=== PATIENT | female | born 1955 | race Caucasian/White ===

== ENCOUNTER 2024-07-29 05:59 | Inpatient (IN) | payer MEDICARE ==
[2024-07-26 09:54] LABS: Urine Bacteria None Seen /hpf (None Seen)
[2024-07-26 10:00] LABS: Basophils # (auto) 0.1 10 ^3/uL (0-0.2); Basophils % (auto) 0.9 % (0.0-2.0); Eosinophils # (auto) 0 10 ^3/uL (0-0.8); Eosinophils % (auto) 0.5 % (0.0-7.0); Hematocrit 40.9 % (36.0-46.0); Hemoglobin 13.8 g/dL (12.2-16.2); Lymphocytes # (auto) 1.7 10 ^3/uL (0.4-5.4); Lymphocytes % (auto) 19.7 % (10.0-50.0); Mean Corpuscular Hemoglobin 30.1 pg (28.0-32.0); Mean Corpuscular Hgb Conc. 33.9 g/dL (32.0-36.0); Mean Corpuscular Volume 88.8 fL (80.0-100.0); Monocytes # (auto) 1.1 10 ^3/uL (0-1.3); Monocytes % (auto) 13.1 % (0.0-12.0); Neutrophils # (auto) 5.7 10 ^3/uL (1.6-8.6); Neutrophils % (auto) 65.8 % (37.0-80.0); Platelet Count (auto) 405 10^3/uL (140-450); Red Cell Distribution Width 13.8 % (11.8-14.3); White Blood Cell 8.6 10^3/uL (4.4-10.8)
[2024-07-26 10:22] LABS: Alanine Aminotransferase 15 U/L (7-40); Albumin 4.7 g/dL (3.2-4.8); Alkaline Phosphatase 105 U/L (46-116); Anion Gap 9 (5-15); Aspartate Aminotransferase 12 U/L (13-40); BUN/Creatinine Ratio 18.3 (10.0-20.0); Blood Urea Nitrogen 13 mg/dL (9-23); Calcium 9.8 mg/dL (8.7-10.4); Carbon Dioxide 27 mmol/L (20-31); Chloride 105 mmol/L (98-107); Glucose 93 mg/dL (74-106); Potassium 3.9 mmol/L (3.5-5.1); Sodium 141 mmol/L (136-145)
[2024-07-26 10:23] LABS: Bilirubin, Total 0.4 mg/dL (0.2-1.0); Total Protein 7.3 g/dL (5.7-8.2)
[2024-07-26 10:37] LABS: INR 1.05 (0.9-1.15); Partial Thromboplastin Time 27.1 SEC (24.5-34.5); Prothrombin Time 11.1 sec (9.3-11.8)
[2024-07-26 11:49] LABS: Urine Blood 2+ /uL (Negative); Urine Clarity Clear (Clear); Urine Color Yellow (Yellow); Urine Mucus FEW (None Seen); Urine Protein, UAD Negative (Negative); Urine Specific Gravity 1.017 (1.001-1.035); Urine Urobilinogen Normal (Negative); Urine WBC 2 /hpf (0 - 5); Urine pH 5.5 (5.0-9.0)
[~2024-07-29] VITALS: Ht 157.5 cm; Wt 68.6 kg
[~2024-07-29 05:59] MED LIST: BACL10TA PO; CHOL20007 PO; PERCOT PO
[2024-07-29] MEDS: PREGABALIN CAPSULE 75 MG CAP PO ONE (07:30)
[2024-07-29] MEDS: ACETAMINOPHEN IV 1000 MG/100ML (10MG/ML) IV ONE (07:30)
[2024-07-29] MEDS: CELECOXIB 100 MG CAP PO ONE (07:30)
[2024-07-29] MEDS: CEFEPIME 1GM/ 50ML 50 ML IV ONE ×2 (08:00→09:05)
[2024-07-29] MEDS: TRANEXAMIC ACID 20 ML ONE (08:09)
[2024-07-29] MEDS: VANCOMYCIN HCL 1000 MG VL ONE (08:11)
[2024-07-29] MEDS ORDERED: PROPOFOL 10 MG/ML 20 ML IV ONE (08:22)
[2024-07-29] MEDS ORDERED: MEPERIDINE HCL (25 MG/ML) 1ML VIAL ONE (08:22)
[2024-07-29] MEDS ORDERED: fentaNYL CITRATE 100 MCG/2 ML VL ONE ×3 (08:22→09:51)
[2024-07-29] MEDS: CELECOXIB 100 MG CAP ONE (08:44)
[2024-07-29] MEDS: ROPIVACAINE 0.5% (5MG/ML) 20ML AMPULE IJ ONE (08:45)
[2024-07-29] MEDS: ACETAMINOPHEN IV 100 ML IV ONE (08:45)
[2024-07-29] MEDS: ceFAZolin 2 GM/D5W100ml 100 ML IV ONE (08:45)
[2024-07-29] MEDS: PREGABALIN CAPSULE 75 MG CAP ONE (08:45)
[2024-07-29] MEDS: KETOROLAC TROMETH 30 MG/ML 1ML VIAL ONE (09:00)
[2024-07-29] MEDS: MORPHINE SULF PF 5 MG/10 ML VIAL ONE (09:00)
[2024-07-29] MEDS: BUPIVACAINE W/ EPINEPH 0.5% INJ 50ML MDV IJ ONE (09:00)
[2024-07-29] MEDS ORDERED: HYDROmorphone HCL 2 MG/ML VL/or syr IV PRN (09:15)
[2024-07-29] MEDS ORDERED: ceFAZolin 1GM/50ML 50 ML IV SCH (09:15)
[2024-07-29] MEDS ORDERED: NITROGLYCERIN 0.4 MG SL TAB SL PRN (09:15)
[2024-07-29] MEDS ORDERED: MORPHINE SULFATE INJ 2 MG/ml SYRG IV PRN (09:15)
[2024-07-29] MEDS ORDERED: ONDANSETRON HCL 4 MG/2 ML VIAL IV PRN (09:15)
--- NOTE | 2024-07-29 09:31 | DVH ---
XY R HIP COMPLETE XRAY HISTORY: SURGERY TECHNICAL DATA: Frontal view was obtained of the pelvis and right hip. COMPARISON: None FINDINGS: Right hip arthroplasty appears intact and in good alignment. Surgical screw hardware is seen to proje ct over the right pelvis and sacrum. No right hip fracture is identified. There is no abnormality in volving the bony pelvis. The sacroiliac joints appear normal. The pubic symphysis appears normal. The contralateral hip demonstrates no abnormality on the single frontal view. The proximal femurs demons trate no abnormality. IMPRESSION: Right hip arthroplasty appears intact and in good alignment.
[2024-07-29] MEDS ORDERED: DexAMETHasone SOD PHOS 10MG/1ML VIAL INJ ONE (09:34)
[2024-07-29] MEDS ORDERED: ONDANSETRON HCL 4 MG/2 ML VIAL ONE (09:34)
[2024-07-29 09:35] VITALS: PULSE 102; RESP 16
[2024-07-29] MEDS ORDERED: ePHEDrine SULFATE 50 MG/ML AMP ONE (09:43)
[2024-07-29] MEDS: LACTATED RINGER'S 1,000 ML IV SCH (09:45)
[2024-07-29] MEDS: CEFEPIME 1GM/ 50ML 50 ML IV SCH (10:00)
[2024-07-29] MEDS: ONDANSETRON HCL 4 MG/2 ML VIAL IV ONE (10:15)
[2024-07-29] MEDS ORDERED: MEPERIDINE HCL (25 MG/ML) 1ML VIAL IV PRN (10:15)
[2024-07-29] MEDS: HYDROmorphone HCL 2 MG/ML VL/or syr IV PRN (11:12)
[2024-07-29] MEDS: SODIUM CHLOR 0.9% PF (SALINE LOCK) 10ML VIAL/SYR IV SCH (14:00)
--- NOTE | 2024-07-29 14:10 | DVHHP2 ---
Review of Systems Allergies: Coded Allergies: Glatiramer (Verified Adverse Reaction, Severe, Lymph node swelling/removal, 07/26/24) Mannitol (Verified Adverse Reaction, Severe, Lymph node swelling/removal, 07/26/24) Medications Current Medications Medications Dose Ordered Sig/Andre Route Start Time Stop Time Status Last Admin Dose Admin Lactated Ringer's 1,000 ml @ 100 mls/hr Q10H IV 07/29/24 09:15 Sodium Chloride 10 ml Q8HR IV 07/29/24 14:00 Cefazolin Sodium 50 ml @ 50 mls/hr Q6H IV 07/29/24 09:15 07/29/24 22:14 Oxycodone/ Acetaminophen 1 tab Q4HP PRN PO 07/29/24 09:15 Ondansetron HCl 4 mg Q6HP PRN IV 07/29/24 09:15 Docusate Sodium 100 mg Q12HR PO 07/29/24 10:00 Enoxaparin Sodium 40 mg DAILY SC 07/29/24 10:00 Nitroglycerin 0.4 mg Q5MINP PRN SL 07/29/24 09:15 Morphine Sulfate 2 mg Q30M PRN IV 07/29/24 09:15 Cefepime HCl 50 ml @ 12.5 mls/hr DAILY IV 07/29/24 10:00 07/30/24 13:59 Exam Vital Signs Vital Signs Date Time Temp Pulse Resp B/P (MAP) Pulse Ox O2 Delivery O2 Flow Rate FiO2 07/29/24 13:20 82 16 117/67 (84) 96 07/29/24 09:43 Nasal Cannula 2.0 07/29/24 09:35 97.6 97.6 Labs/Xrays Labs Test 07/26/24 09:50 Range/Units White Blood Count 8.6 4.4-10.8 10^3/uL Red Blood Count 4.60 4.0-5.20 10^6/uL Hemoglobin 13.8 12.2-16.2 g/dL Hematocrit 40.9 36.0-46.0 % Mean Corpuscular Volume 88.8 80.0-100.0 fL Mean Corpuscular Hemoglobin 30.1 28.0-32.0 pg Mean Corpuscular Hemoglobin Concent 33.9 32.0-36.0 g/dL Red Cell Distribution Width 13.8 11.8-14.3 % Platelet Count 405 140-450 10^3/uL Mean Platelet Volume 7.2 6.9-10.8 fL Neutrophils (%) (Auto) 65.8 37.0-80.0 % Lymphocytes (%) (Auto) 19.7 10.0-50.0 % Monocytes (%) (Auto) 13.1 H 0.0-12.0 % Eosinophils (%) (Auto) 0.5 0.0-7.0 % Basophils (%) (Auto) 0.9 0.0-2.0 % Neutrophils # (Auto) 5.7 1.6-8.6 10 ^3/uL Lymphocytes # (Auto) 1.7 0.4-5.4 10 ^3/uL Monocytes # (Auto) 1.1 0-1.3 10 ^3/uL Eosinophils # (Auto) 0 0-0.8 10 ^3/uL Basophils # (Auto) 0.1 0-0.2 10 ^3/uL Nucleated Red Blood Cells 0.0 % Prothrombin Time 11.1 9.3-11.8 sec Prothrombin Time INR 1.05 0.9-1.15 Activated Partial Thromboplast Time 27.1 24.5-34.5 SEC Urine Color Yellow Yellow Urine Clarity Clear Clear Urine pH 5.5 5.0-9.0 Urine Specific [place] 1.017 1.001-1.035 Urine Protein Negative Negative Urine Ketones Negative Negative Urine Blood 2+ H Negative /uL Urine Nitrite Negative Negative Urine Bilirubin Negative Negative Urine Urobilinogen Normal Negative mg/dL Urine Leukocyte Esterase Negative Negative /uL Urine RBC 9 0 - 4 /hpf Urine WBC 2 0 - 5 /hpf Urine Squamous Epithelial Cells Few <5 /hpf Urine Bacteria None seen None Seen /hpf Urine Mucus Few None Seen Urine Glucose Normal Normal mg/dL Sodium Level 141 136-145 mmol/L Potassium Level 3.9 3.5-5.1 mmol/L Chloride Level 105 98-107 mmol/L Carbon Dioxide Level 27 20-31 mmol/L Anion Gap 9 5-15 Blood Urea Nitrogen 13 9-23 mg/dL Creatinine 0.71 0.550-1.02 mg/dL Glomerular Filtration Rate Calc 93 >90 mL/min BUN/Creatinine Ratio 18.3 10.0-20.0 Serum Glucose 93 74-106 mg/dL Calcium Level 9.8 8.7-10.4 mg/dL Total Bilirubin 0.4 0.2-1.0 mg/dL Aspartate Amino Transferase (AST) 12 L 13-40 U/L Alanine Aminotransferase (ALT) 15 7-40 U/L Alkaline Phosphatase 105 46-116 U/L Total Protein 7.3 5.7-8.2 g/dL Albumin 4.7 3.2-4.8 g/dL Assessment/Plan Assessment/Plan see dictated note Plan discussed with: Patient My Orders Orders - CHANI MURRIETA MD Procedure Category Date Status Time Hydromorphone PHA 07/29/24 Transmitted Injection (Dilaudid 14:15 Complete Blood Count LAB 07/30/24 Verified 06:00 Comprehensive LAB 07/30/24 Verified Metabolic Panel 06:00 Date of Service: Jul 29, 2024 Billing Provider: CHANI MURRIETA MD Common Visit Codes: [id number] INP/OBS CARE (HIGH) CHANI MURRIETA MD Jul 29, 2024 14:10
[2024-07-29 14:15] VITALS: BP 138/75; PULSE 93; RESP 16; TEMP 97.9; O2SAT 92
--- NOTE | 2024-07-29 14:51 | DVHHP ---
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 The patient at this time denies any significant pain. No chest pain or shortness of breath. No nausea or vomiting. REVIEW OF SYSTEMS: Review of rest of systems is otherwise currently negative. PAST MEDICAL HISTORY: Significant for chronic pain along with history of multiple sclerosis. MEDICATIONS: She takes Percocet and baclofen. ALLERGIES: . SOCIAL HISTORY: Denies smoking. Lives at home with her . FAMILY HISTORY: Negative. PHYSICAL EXAMINATION: GENERAL: The patient is awake, alert. VITAL SIGNS: Temperature of 97.6, pulse of 80 per minute, blood pressure 158/65. SHEENT: Unremarkable. NECK: There is no JVD. No pedal edema. LUNGS: Equal bilaterally. No added sounds. CARDIOVASCULAR: S1, S2 is regular. No murmurs. ABDOMEN: Soft. There is no organomegaly. NEUROLOGIC: Nonfocal. MUSCULOSKELETAL: The right hip has a dressing in place. ASSESSMENT AND PLAN: * Multiple sclerosis. * Chronic pain for which the patient will continue on baclofen and Percocet. * Status post right hip surgery for degenerative joint disease of the hip for which she will be receiving pain medication and physical therapy. MD JUANITA Jones/MARIA TERESA/JONATHON TID: [id number] RECEIPT: [id number]
[2024-07-29 16:15] VITALS: BP 138/75; PULSE 93; RESP 16; TEMP 97.9; O2SAT 92
[2024-07-29] MEDS: ENOXAPARIN SOD 40 MG/0.4 ML SYRINGE SC SCH (16:15)
[2024-07-29] MEDS: DOCUSATE SOD 100 MG CAP PO SCH (16:15)
--- NOTE | 2024-07-29 17:48 | DVH ---
EXAM: XY PELVIS AP CLINICAL HISTORY: sp Right SABRINA COMPARISON: None TECHNIQUE: XY PELVIS AP Findings/Impression: Single frontal view of the pelvis. There is no evidence of an acute fracture, dislocation, blastic, or lytic lesions. Right total hip arthroplasty. No superficial soft tissue abnormalities.
[2024-07-29] MEDS: ceFAZolin 1GM/50ML 50 ML IV SCH (19:07)
[2024-07-29 20:00] VITALS: PULSE 93; RESP 18; O2SAT 95
[2024-07-29] MEDS ORDERED: PNEUMOCOCCAL VACC POLYS 25 MCG/0.5 ML VIAL IM ONE (20:15)
[2024-07-29] MEDS: INFLUENZA TRIVALENT 2024-2025 0.5 ML INJ IM ONE (20:56)
[2024-07-29 21:00] VITALS: BP 154/74; PULSE 93; RESP 18; TEMP 97.9; O2SAT 95
[2024-07-29] MEDS: BACLOFEN 10 MG TAB PO PRN (23:13)
[2024-07-30] VITALS (8 sets, daily range): BP systolic 126–158; BP diastolic 57–73; PULSE 79–103; RESP 16–19; TEMP 98–100.2; O2SAT 90–94
[2024-07-30] MEDS: OXYCODONE W/ ACETAMINOPHEN 5/325MG TABLET PO PRN (00:25)
[2024-07-30] MEDS: ceFAZolin 1GM/50ML 50 ML IV SCH (00:26)
[2024-07-30] MEDS: HYDROmorphone HCL 2 MG/ML VL/or syr IV PRN (03:18)
[2024-07-30 06:25] LABS: Basophils # (auto) 0 10 ^3/uL (0-0.2); Basophils % (auto) 0.2 % (0.0-2.0); Eosinophils # (auto) 0 10 ^3/uL (0-0.8); Eosinophils % (auto) 0.2 % (0.0-7.0); Hematocrit 34.9 % (36.0-46.0); Hemoglobin 11.8 g/dL (12.2-16.2); Mean Corpuscular Hemoglobin 29.8 pg (28.0-32.0); Mean Corpuscular Hgb Conc. 33.8 g/dL (32.0-36.0); Mean Corpuscular Volume 88.4 fL (80.0-100.0); Monocytes # (auto) 1.5 10 ^3/uL (0-1.3); Monocytes % (auto) 14.1 % (0.0-12.0); Neutrophils # (auto) 7.3 10 ^3/uL (1.6-8.6); Neutrophils % (auto) 67.5 % (37.0-80.0); Nucleated Red Blood Cells % 0.1 %; Platelet Count (auto) 355 10^3/uL (140-450); Red Blood Cells 3.94 10^6/uL (4.0-5.20); Red Cell Distribution Width 13.9 % (11.8-14.3); White Blood Cell 10.8 10^3/uL (4.4-10.8)
[2024-07-30 06:46] LABS: Alanine Aminotransferase 13 U/L (7-40); Alkaline Phosphatase 80 U/L (46-116); Anion Gap 7 (5-15); Aspartate Aminotransferase 21 U/L (13-40); BUN/Creatinine Ratio 16.1 (10.0-20.0); Bilirubin, Total 0.5 mg/dL (0.2-1.0); Blood Urea Nitrogen 10 mg/dL (9-23); Calcium 8.6 mg/dL (8.7-10.4); Carbon Dioxide 27 mmol/L (20-31); Chloride 104 mmol/L (98-107); Glucose 94 mg/dL (74-106); Potassium 3.5 mmol/L (3.5-5.1); Sodium 138 mmol/L (136-145); Total Protein 5.9 g/dL (5.7-8.2)
--- NOTE | 2024-07-30 07:44 | DVHPN2 ---
Progress Note Date Seen: Jul 30, 2024 Medical Necessity Reason Pt with a Central, PICC or Fol: No Subjective Patient reports: No new complaints Objective vital signs Vital Sign Date Time Temp Pulse Resp B/P (MAP) Pulse Ox O2 Delivery O2 Flow Rate FiO2 07/30/24 05:00 98.0 79 17 126/68 (87) 90 98.0 07/29/24 20:00 Room Air* 0 21 Total Intake and Output 07/29/24 07/29/24 07/30/24 15:00 23:00 07:00 Intake Total 100 ml 1000 ml Output Total 150 ml Balance 100 ml 850 ml medications Current Medications Medications Dose Ordered Sig/Andre Route Start Time Stop Time Status Last Admin Dose Admin Lactated Ringer's 1,000 ml @ 100 mls/hr Q10H IV 07/29/24 09:15 07/30/24 06:17 100 MLS/HR Sodium Chloride 10 ml Q8HR IV 07/29/24 14:00 07/30/24 06:23 10 ML Oxycodone/ Acetaminophen 1 tab Q4HP PRN PO 07/29/24 09:15 07/30/24 00:25 1 TAB Ondansetron HCl 4 mg Q6HP PRN IV 07/29/24 09:15 Docusate Sodium 100 mg Q12HR PO 07/29/24 10:00 07/29/24 20:42 100 MG Enoxaparin Sodium 40 mg DAILY SC 07/29/24 10:00 Nitroglycerin 0.4 mg Q5MINP PRN SL 07/29/24 09:15 Morphine Sulfate 2 mg Q30M PRN IV 07/29/24 09:15 Cefepime HCl 50 ml @ 12.5 mls/hr DAILY IV 07/29/24 10:00 07/30/24 13:59 Hydromorphone HCl 1 mg Q3HP PRN IV 07/29/24 14:15 07/30/24 03:18 1 MG Baclofen 10 mg Q8HP PRN PO 07/29/24 14:15 07/29/24 23:13 10 MG Cefazolin Sodium 50 ml @ 50 mls/hr Q6H IV 07/30/24 01:00 07/30/24 07:59 07/30/24 06:19 50 MLS/HR Examination: GENERAL:Normal, MSK:Abnormal laboratory and microbiology Laboratory Tests 07/30/24 04:41 Test 07/30/24 04:41 Range/Units Serum Glucose 94 74-106 mg/dL Problem List/Assessment/Plan Problem List/Assessment/Plan 68 year old female who is s/p Right SABRINA POD 1 1. Pain control 2. DVT ppx 3. WBAT with use of walker and posterior hip precautions 4. Physical therapy with posterior hip protocol 5. continue with island dressing, can change as needed Plan discussed with: Patient Date of Service: Jul 30, 2024 Billing Provider: ARCELIA BOUCHER MD Common Visit Codes: NOT BILLABLE ALON COLUNGA NP Jul 30, 2024 07:44
[2024-07-30] MEDS ORDERED: LACTATED RINGER'S 1,000 ML IV SCH (10:00)
--- NOTE | 2024-07-30 10:04 | DVHPN2 ---
Progress Note Date Seen: Jul 30, 2024 Medical Necessity Reason Pt with a Central, PICC or Fol: No Subjective Patient reports: No new complaints Review of Systems: HEENT:Normal, CVS:Normal, RESPIRATORY:Normal, GI:Normal, :Normal, MSK:Normal, NEURO:Normal Objective vital signs Vital Sign Date Time Temp Pulse Resp B/P (MAP) Pulse Ox O2 Delivery O2 Flow Rate FiO2 07/30/24 09:00 98.0 89 16 144/57 (86) 91 98.0 07/29/24 20:00 Room Air* 0 21 Total Intake and Output 07/29/24 07/29/24 07/30/24 15:00 23:00 07:00 Intake Total 100 ml 1000 ml Output Total 150 ml Balance 100 ml 850 ml medications Current Medications Medications Dose Ordered Sig/Andre Route Start Time Stop Time Status Last Admin Dose Admin Lactated Ringer's 1,000 ml @ 100 mls/hr Q10H IV 07/29/24 09:15 07/30/24 06:17 100 MLS/HR Sodium Chloride 10 ml Q8HR IV 07/29/24 14:00 07/30/24 06:23 10 ML Oxycodone/ Acetaminophen 1 tab Q4HP PRN PO 07/29/24 09:15 07/30/24 00:25 1 TAB Ondansetron HCl 4 mg Q6HP PRN IV 07/29/24 09:15 Docusate Sodium 100 mg Q12HR PO 07/29/24 10:00 07/29/24 20:42 100 MG Enoxaparin Sodium 40 mg DAILY SC 07/29/24 10:00 Nitroglycerin 0.4 mg Q5MINP PRN SL 07/29/24 09:15 Morphine Sulfate 2 mg Q30M PRN IV 07/29/24 09:15 Cefepime HCl 50 ml @ 12.5 mls/hr DAILY IV 07/29/24 10:00 07/30/24 13:59 Hydromorphone HCl 1 mg Q3HP PRN IV 07/29/24 14:15 07/30/24 03:18 1 MG Baclofen 10 mg Q8HP PRN PO 07/29/24 14:15 07/29/24 23:13 10 MG Examination: GENERAL:Normal, HEENT:Normal, NECK:Normal, LUNGS:Normal, CVS:Normal, ABDOMEN:Normal, MSK:Abnormal (RIGHT HIP DRESSING), SKIN:Normal, NEURO:Normal, :Normal laboratory and microbiology Laboratory Tests 07/30/24 04:41 Test 07/30/24 04:41 Range/Units Serum Glucose 94 74-106 mg/dL Problem List/Assessment/Plan Problem List/Assessment/Plan * Multiple sclerosis. * Chronic pain for which the patient will continue on baclofen and Percocet. * Status post right hip surgery for degenerative joint disease of the hip for which she will be receiving pain medication and physical therapy. advance care planning- full code- time spent 19 mins Plan discussed with: Patient My Orders My Orders Orders - CHANI MURRIETA MD Procedure Category Date Status Time Hydromorphone PHA 07/29/24 In Process Injection (Dilaudid 14:15 Baclofen Tablet PHA 07/29/24 In Process (Liorisal Tablet) 14:15 Hepatitis B Surface LAB 07/29/24 In Process Antigen 20:06 Hepatitis C Antibody LAB 07/29/24 In Process 20:06 Lactated Ringers 1000 PHA 07/30/24 Verified mL 10:00 Date of Service: Jul 30, 2024 Billing Provider: CHANI MURRIETA MD Common Visit Codes: [id number] INP/OBS CARE(HIGH) Secondary Visit Codes: [id number] CARE PLAN 30 MINUTES CHANI MURRIETA MD Jul 30, 2024 10:04
[2024-07-31 01:00] VITALS: BP 141/75; PULSE 97; RESP 17; TEMP 99.3; O2SAT 94
[2024-07-31 05:00] VITALS: BP 138/78; PULSE 82; RESP 18; TEMP 98.1; O2SAT 92
[2024-07-31 07:18] LABS: Hematocrit 40.9 % (36.0-46.0)
--- NOTE | 2024-07-31 08:01 | DVHPN2 ---
Progress Note Date Seen: Jul 31, 2024 Medical Necessity Reason Pt with a Central, PICC or Fol: No Objective vital signs Vital Sign Date Time Temp Pulse Resp B/P (MAP) Pulse Ox O2 Delivery O2 Flow Rate FiO2 07/31/24 05:00 98.1 82 18 138/78 (98) 92 98.1 07/30/24 20:00 Room Air* 0 21 Total Intake and Output 07/30/24 07/30/24 07/31/24 15:00 23:00 07:00 Intake Total 675 ml 450 ml Output Total 400 ml Balance 675 ml 50 ml medications Current Medications Medications Dose Ordered Sig/Andre Route Start Time Stop Time Status Last Admin Dose Admin Sodium Chloride 10 ml Q8HR IV 07/29/24 14:00 07/31/24 05:00 10 ML Oxycodone/ Acetaminophen 1 tab Q4HP PRN PO 07/29/24 09:15 07/31/24 04:56 1 TAB Ondansetron HCl 4 mg Q6HP PRN IV 07/29/24 09:15 Docusate Sodium 100 mg Q12HR PO 07/29/24 10:00 07/30/24 10:53 100 MG Enoxaparin Sodium 40 mg DAILY SC 07/29/24 10:00 07/30/24 10:53 40 MG Nitroglycerin 0.4 mg Q5MINP PRN SL 07/29/24 09:15 Morphine Sulfate 2 mg Q30M PRN IV 07/29/24 09:15 Hydromorphone HCl 1 mg Q3HP PRN IV 07/29/24 14:15 07/31/24 02:02 1 MG Baclofen 10 mg Q8HP PRN PO 07/29/24 14:15 07/29/24 23:13 10 MG laboratory and microbiology Laboratory Tests 07/31/24 07:06 07/30/24 04:41 Test 07/30/24 04:41 Range/Units Serum Glucose 94 74-106 mg/dL Problem List/Assessment/Plan Problem List/Assessment/Plan 68 year old female who is s/p Right SABRINA POD 2 1. Pain control 2. DVT ppx 3. WBAT with use of walker and posterior hip precautions 4. Physical therapy with posterior hip protocol 5. continue with island dressing, can change as needed 6. follow up in 2 weeks as scheduled on 08/14/2024 at 9:30 7. Clear for discharge from orthopedic standpoint with the following discharge recommendations: POSTOPERATIVE Posterior Total Hip INSTRUCTIONS Activity: 1. You can bear as much weight as you tolerate on your hip unless specifically instructed otherwise. You may use the walking aid which you were discharged with and switch to a cane whenever you feel comfortable doing so. You should use an assistive device until you can walk comfortably without it. Keep in mind that every patient moves at their own speed of recovery so take your time. 2. A physical therapist will visit you at home. 3. Although guarantees against a dislocation do not exist, the hip was noted to be sufficiently stable in surgery. Below are motions that you should dischargenot do for 4-6 weeks, depending on the surgical approach used. If there are questions, please call the office. a. Bend forward past 90 degrees b. Sit on a regular low chair, couch, car seat etc... c. Cross your legs d. Use a regular low toilet seat. e. Sleep on your stomach or on either side. 3. High impact activity such as jumping, aerobics, tennis, and skiing are not permitted during the first 3 months after surgery. These activities can contribute to accelerated wear and should be done with caution after this time. Discuss this with your surgeon if you have questions. 4. Although a bath or whirlpool is NOT permitted during the first 2-3 weeks, you may shower as soon as you get home from the hospital provided you are able to keep your bandage clean and dry and there is no wound drainage. If you are unable to place a secured covering over your bandage bed bath/sponge bath may likely be the more appropriate option. 5. Swimming is not permitted until the wound is healed, which typically occurs approximately 3-4 weeks after surgery. Wound Management: If the wound is draining please change the gauze pad on the wound until it stops. If drainage persists past 10 days please notify our office. If there is a sticky gel dressing over your wound, you may leave this in place for as long as it is clean and dry. If it becomes loose or causes skin irritation, it is OK to remove it and place clean gauze over your wound. 1. You might notice some bruising around the surgical site, this is normal. 2. Check your temperature on a daily basis. Please note that a low-grade temp below 101 is not uncommon after surgery especially during the first 3 days. Notify the office if your temperature spikes above 101.5 after the 3rd post- operative date. 3. Many patients experience significant swelling in the thigh, this may extend below the knee and sometimes to the ankle. Swelling increases during the first week and subsides during the following week. 4. Provided you have been on a blood thinner since surgery and have been up and about at least three times per day, the risk of a blood clot is low and this swelling is an expected part of recovery. It will largely or completely resolve by your first post-operative visit. 5. [place], if present, will be removed at 2 weeks during initial post-op visit. Medications: 1. You will be discharged with pain medication, Aspirin as a blood thinner and sometimes an anti-inflammatory medication such as Celebrex or Mobic might be prescribed. Please follow the instructions regarding these medicines as provided by your nurse at the hospital. 2. Narcotic pain medication has side effects, including constipation. Please ensure you continue to take stool softeners (Colace, Senna) while taking your pain medication to help protect against constipation. Getting up and moving around at least a few times per day helps with this also. 3. Lovenox 40 Sq x 12 days followed by one regular strength 325 mg coated aspirin daily for 4 weeks after surgery. Then, take one baby aspirin, 81 mg daily for 6 weeks more. A major, yet preventable, complication of Orthopaedic Surgery is a blood clot (DVT). It is important not to miss any doses of this important medication. 4. You should restart all of your prescription medications once discharged unless specifically instructed otherwise. 5. Herbal supplements may be restarted 2 weeks after surgery. Miscellaneous issues: 1. Driving is not permitted within the first 2 weeks. 2. Your first postoperative visit will take place 2weeks after discharge. Please call the office to arrange this appointment. 3. Antibiotic preventative treatment is required before dental or other invasive procedures. Please ask your surgeon about this at your first postoperative visit. Your hip replacement contains metal which may activate metal detectors. You may wish to carry a letter from your surgeon to communicate this to security personnel. If you experience chest pain, shortness of breath or severe painful calf swelling, go to the nearest emergency room to be evaluated. Please call our office once your situation is stabilized. Plan discussed with: Patient Date of Service: Jul 31, 2024 Billing Provider: ARCELIA BOUCHER MD Common Visit Codes: NOT BILLABLE ALON COLUNGA NP Jul 31, 2024 08:01
[2024-07-31 08:45] VITALS: BP 160/63; PULSE 95; RESP 17; TEMP 97.6; O2SAT 95
[2024-07-31 09:57] VITALS: BP 155/72; PULSE 106
--- NOTE | 2024-07-31 10:23 | DVHDS2 ---
Discharge Summary Date of Admission Jul 29, 2024 at 09:09 Date of Discharge: Jul 31, 2024 Labs/Diagnostic Data: Laboratory Results Test 07/31/24 07:06 07/30/24 04:41 07/26/24 09:50 Hemoglobin 14.0 g/dL (12.2-16.2) Hematocrit 40.9 % (36.0-46.0) White Blood Count 10.8 10^3/uL (4.4-10.8) Red Blood Count 3.94 10^6/uL (4.0-5.20) Mean Corpuscular Volume 88.4 fL (80.0-100.0) Mean Corpuscular Hemoglobin 29.8 pg (28.0-32.0) Mean Corpuscular Hemoglobin Concent 33.8 g/dL (32.0-36.0) Red Cell Distribution Width 13.9 % (11.8-14.3) Platelet Count 355 10^3/uL (140-450) Mean Platelet Volume 7.6 fL (6.9-10.8) Neutrophils (%) (Auto) 67.5 % (37.0-80.0) Lymphocytes (%) (Auto) 18.0 % (10.0-50.0) Monocytes (%) (Auto) 14.1 % (0.0-12.0) Eosinophils (%) (Auto) 0.2 % (0.0-7.0) Basophils (%) (Auto) 0.2 % (0.0-2.0) Neutrophils # (Auto) 7.3 10 ^3/uL (1.6-8.6) Lymphocytes # (Auto) 2.0 10 ^3/uL (0.4-5.4) Monocytes # (Auto) 1.5 10 ^3/uL (0-1.3) Eosinophils # (Auto) 0 10 ^3/uL (0-0.8) Basophils # (Auto) 0 10 ^3/uL (0-0.2) Nucleated Red Blood Cells 0.1 % Sodium Level 138 mmol/L (136-145) Potassium Level 3.5 mmol/L (3.5-5.1) Chloride Level 104 mmol/L (98-107) Carbon Dioxide Level 27 mmol/L (20-31) Anion Gap 7 (5-15) Blood Urea Nitrogen 10 mg/dL (9-23) Creatinine 0.62 mg/dL (0.550-1.02) Glomerular Filtration Rate Calc 97 mL/min (>90) BUN/Creatinine Ratio 16.1 (10.0-20.0) Serum Glucose 94 mg/dL (74-106) Calcium Level 8.6 mg/dL (8.7-10.4) Total Bilirubin 0.5 mg/dL (0.2-1.0) Aspartate Amino Transferase (AST) 21 U/L (13-40) Alanine Aminotransferase (ALT) 13 U/L (7-40) Alkaline Phosphatase 80 U/L (46-116) Total Protein 5.9 g/dL (5.7-8.2) Albumin 4.0 g/dL (3.2-4.8) Prothrombin Time 11.1 sec (9.3-11.8) Prothrombin Time INR 1.05 (0.9-1.15) Activated Partial Thromboplast Time 27.1 SEC (24.5-34.5) Urine Color Yellow (Yellow) Urine Clarity Clear (Clear) Urine pH 5.5 (5.0-9.0) Urine Specific [place] 1.017 (1.001-1.035) Urine Protein Negative (Negative) Urine Ketones Negative (Negative) Urine Blood 2+ /uL (Negative) Urine Nitrite Negative (Negative) Urine Bilirubin Negative (Negative) Urine Urobilinogen Normal mg/dL (Negative) Urine Leukocyte Esterase Negative /uL (Negative) Urine RBC 9 /hpf (0 - 4) Urine WBC 2 /hpf (0 - 5) Urine Squamous Epithelial Cells Few /hpf (<5) Urine Bacteria None seen /hpf (None Seen) Urine Mucus Few (None Seen) Urine Glucose Normal mg/dL (Normal) Other Laboratory Tests 07/31/24 07:06 07/30/24 04:41 Brief Hx & Hospital Course: SEE DICTATED NOTE Condition at Discharge: Good Final Diagnosis/Problems List RIGHT HIP SURGERY Discharge Disposition: Home with Health Services Discharge Instruct/Medications Diet: Regular Activity: No Restrictions, As Tolerated Follow Up/Referral: FU WITH ORTHO Medications: RESUME HOME MEDS REST MEDS PER ORTHO Discharge Statement: "Patient was advised to return to the ER or call 911 if any headaches, dizziness, shortness of breath, chest pain, abdominal pain, bleeding, fevers, or worsening of medical condition. Patient was counseled about treatment plan, medications, possible side effects, patientverbalized understanding. All questions were answered to the best of my ability. This discharge took greater then 30 minutes in planning, reviewing documentation, counseling the patient, and discussing with other team members." ASSESSMENT ASSESSMENT Assessment RIGHT HIP SURGERY Date of Service: Jul 31, 2024 Billing Provider: CHANI MURRIETA MD Common Visit Codes: [id number]/[id number] DISCH DAY >30min CHANI MURRIETA MD Jul 31, 2024 10:23
--- NOTE | 2024-07-31 11:01 | DVHDS ---
DATE OF DISCHARGE: 07/31/2024 HISTORY OF PRESENT ILLNESS: The patient is a 68-year-old lady who was admitted after she underwent surgery for the right hip for DJD of the hip. The patient has a history of multiple sclerosis and chronic pain. HOSPITAL COURSE: The patient did well postoperatively. She has been ambulating with physical therapy. Hemoglobin has remained stable. The patient has now been cleared for discharge by Orthopedics and will be discharged home to be on medications as per Orthopedics. She will have home physical therapy. The patient will follow up with her primary and orthopedic clinic. FINAL DIAGNOSES: Therefore, * Multiple sclerosis. * Chronic pain. * Status post right hip surgery for degenerative joint disease of the hip. Time spent in discharge planning and review of plan with the patient and nursing was 37 minutes. MD JUANITA Jones/DENISE TID: [id number] RECEIPT: [id number]
[2024-07-31] MEDS: PNEUMOCOCCAL VACC POLYS 25 MCG/0.5 ML VIAL IM ONE (12:45)
[2024-07-31 13:03] VITALS: BP 163/88; PULSE 88; RESP 17; TEMP 97.9; O2SAT 94
--- NOTE | 2024-08-01 06:02 | DVHOP2 ---
Operative Report - 2 Report Details Date: 07/29/24 Preop Diagnosis: Right hip osteoarthritis Postop Diagnosis: Right hip osteoarthritis Surgeon: Rahat Boucher MD [employer] Sweeper Operator: Ayan CM Anesthesiologist: Oneida TOLBERT Anesthesia: Regional Implant: [employer] see implant log Consent: The patient was informed of the risks and benefits of the procedure. These include but are not limited to complications of anesthesia, postoperative infection, incomplete relief of symptoms, recurrence of symptoms, damage to blood vessels, nerves and tendons, deep venous thrombosis, pulmonary embolism and possible need for repeat surgery in the future. Estimated Blood Loss: 300 cc Name of Procedure Performed Right total hip arthroplasty using computer navigation Procedure Details Procedure Details: FINDINGS: Extensive degenerative disease with grade IV changes INDICATION: This patient has failed non-operative treatments for hip arthritis and is now indicated for a total hip replacement. Preoperatively in the waiting area as well as in the office, I had a long discussion with the patient regarding the plan, the expected outcome, the risks, benefits, and alternatives of surgery. The risks include, but are not limited to, infection (which may require future surgery and removal of implants) , bleeding (which may require a transfusion), damage to nerves, arteries, veins, tendons, muscles and other adjacent structures. Also discussed the possibilities of dislocation, leg-length discrepancy, intraoperative fractures, implant loosening, heterotopic bone formation, and revision for variety of reasons, and medical complications etc. This was discussed at length and consent has been obtained. DESCRIPTION OF PROCEDURE: In the preoperative holding area, the consent was reviewed and the appropriate extremity was verified by the patient and marked with my initials. The patient was then transferred to the operating theatre. Appropriate anesthetia was induced. All bony prominences were well padded. A time out was performed verifying the side and site of surgery according to standard protocol. Preoperative antibiotics were given. Tranexamic acid was given. The patient was then placed in the lateral decubitus position and fixed with rigid pelvic fixation. All bony prominences were well padded and an axillary roll was placed. The affected hip area was then prepped and draped in the usual sterile fashion. Using an 11-blade, three stab incisions were made over the iliac crest. Two threaded guide pins were inserted into the crest confirming to be in bone. The pelvic array was attached to the pins and tightened. We made a standard posterolateral incision sharply through the skin and carried our dissection down through subcutaneous tissue to the underlying fascia achieving hemostasis where necessary. We incised the fascia in line with our incision. We identified and protected the sciatic nerve. We took down the external rotators and hip capsule from their insertion into the greater trocha nter, tagged them and retracted them posteriorly for further protection of the sciatic nerve. A check point was placed into the greater trochanter and the hip center and leg length length were registered. We then dislocated the femoral head and performed an osteotomy of the femoral neck in accordance with our pre-operative plan. The labrum was excised with a long-handle knife, and we exposed the acetabular rim and cotyloid fossa. We then reamed up to our final size in accordance with the preoperative plan. We copiously irrigated and then impacted the final cup into position. We confirmed the position with the robotic navigation guidance. We placed two acetabular dome screws into the posterior-superior quadrant in the usual fashion. We irrigated the cup and impacted the liner, checking to make sure it was well seated. Attention was then turned to the femur. We used a box osteotome followed by a canal finder to gain entry to the canal. Intramedullary contents were suctioned and care was taken to ensure they did not touch the tissues. We sequentially reamed until good cortical contact, then broached up to out final size. We trialed with the appropriate femoral neck and head and reduced the hip. The hip was taken through a full range of motion. The hip soft tissues were examined in extension and external rotation, the anterior capsule and IT band were palpated, and combined anteversion was determined to be 40 degrees. The hip was stable at maximum flexion, at 90 degrees of flexion and 45 degrees of internal rotation and the position of sleep. Leg lengths were restored as shown using the computer navigation, and the trial LTC matched preoperative and intraoperative templating. The hip was then dislocated and trial components removed. We copiously irr igated the wound and impacted the final femoral stem into position. The femoral head was impacted onto a clean and dry trunion and confirmed to be seated. The hip was reduced ensuring to tissues in the acetabular cup. We again brought it through a full functional range of motion and there was no evidence for dislocation, instability, or impingement. The checkpoint was removed. A dilute betadine solution (17.5mL in 500mL saline) was used to wash the joint and left to sit for 3 minutes. This was then irrigated out with copious amounts of pulse lavage. We sprinkled 1g vancomycin powder below the fascia and 1g above the fascia. We copiously irrigated the wound and soft tissues. The short external rotators and capsule were repaired to the greater trochanter through drill holes, and the quadratus was repaired. We palpated the sciatic nerve in continuity without tension. The fascia was closed with vicryl and a barbed suture. We closed over the fascia with vicryl suture and re-approximated the skin with darlene. A sterile dressing was placed. We returned the patient to the supine position. We verified all lower extremity compartments were soft and compressible and that we had intact distal pulses and checked our leg length protestant. We took an AP Pelvis in the operating room, which we reviewed prior to transfer. The patient was then transferred to the recovery room in stable condition. Condition Good Disposition Still a Patient RAHAT BOUCHER MD Aug 01, 2024 06:02
[2024-08-01 09:10] LABS: Hepatitis B Surface Antigen Negative (Negative)
[2024-08-01 09:32] LABS: Hepatitis C Antibody Negative (Negative)
== END 2024-07-31 14:25 | disposition home health service (06) | DRG 470 ==
LOC: SUR 05:59 → OVERFLOW 09:09 → CENTRAL 16:14
PROVIDERS: ADMIT Orthopaedic Surgery Adult Reconstructive Orthopaedic Surgery; ATTEND Internal Medicine
PROC: 0SR90JZ Replacement of Right Hip Joint with Synthetic Substitute, Open Approach (ICD-10-PCS; principal; 2024-07-29 07:52)
DX: M16.11 Unilateral primary osteoarthritis, right hip (principal); G35 Multiple sclerosis; Z96.641 Presence of right artificial hip joint; G89.29 Other chronic pain; Z88.8 Allergy status to other drugs, medicaments and biological substances; Z79.899 Other long term (current) drug therapy; Z23 Encounter for immunization
CPT/HCPCS: 36415; 72170; 73502; 80053; 81001; 85014; 85018; 85025; 85610; 85730; 86803; 86850; 86900; 86901; 87340; 90656; 97110; 97116; 97163; 97530; C1713; G0378; J0131; J1100; J1885; J2405; J2704